=== PATIENT | female | born 1990 | race Caucasian/White ===

== ENCOUNTER 2021-07-18 00:54 | Emergency (ER) | payer OTHER ==
[~2021-07-18 00:54] MED LIST: COLACE 100MG C100 MG PO; IBUPROFEN600 MG PO; NORCO 5-325 TA1 EACH PO
[2021-07-18 01:46] LABS: HEMOGLOBIN 11.5 gm/dl (12.3-15.3); RED BLOOD COUNT 4.34 M/UL (4.00-5.10); WHITE BLOOD COUNT 15.1 K/UL (4.5-11.0)
[2021-07-18 02:07] LABS: BUN/CREATININE RATIO 16 (0-10)
== END 2021-07-18 12:28 | disposition other institution (70) ==
LOC: ER1 00:54
PROVIDERS: Emergency Medicine
DX: N13.2 Hydronephrosis with renal and ureteral calculous obstruction (principal); N39.0 Urinary tract infection, site not specified; I10 Essential (primary) hypertension; Z20.822 Contact with and (suspected) exposure to COVID-19; Z87.442 Personal history of urinary calculi; Z86.73 Personal history of transient ischemic attack (TIA), and cerebral infarction without residual deficits
CPT/HCPCS: 80053; 81001; 83605; 84703; 85025; 87040; 87077; 87086; 87186; 96374; 99284; J0696; J1885; J2270; J2405; Q9967; U0002

== ENCOUNTER 2022-08-12 18:51 | Emergency (ER) | payer OTHER ==
[2022-08-12 19:46] LABS: HEMOGLOBIN 11.5 gm/dl (12.3-15.3); RED BLOOD COUNT 4.38 M/UL (4.00-5.10)
[2022-08-12 20:11] LABS: BUN/CREATININE RATIO 19 (0-10)
[2022-08-13] MEDS ORDERED: NAPROXEN500 MG PO (01:07)
[2022-08-13] MEDS ORDERED: ZOFRAN 4 MG TAB4 MG PO (01:07)
== END 2022-08-13 01:23 | disposition home or self-care (01) ==
LOC: ER1 18:51
PROVIDERS: Physician Assistant
DX: K80.20 Calculus of gallbladder without cholecystitis without obstruction (principal); N13.2 Hydronephrosis with renal and ureteral calculous obstruction; Z87.442 Personal history of urinary calculi
CPT/HCPCS: 80053; 81001; 82150; 83690; 84703; 85025; 87086; 99284; Q9967